=== PATIENT | male | born 1950 | race African-American/Black ===

== ENCOUNTER 2018-09-23 07:54 | Day surgery (SDC) | payer BC, OTHER ==
[2018-09-17 14:15] VITALS: BMI 29.0
[2018-09-23 08:16] VITALS: TEMP 97.6
[2018-09-23] MEDS ORDERED: PROPOFOL 20 ML ONE ×2 (08:25)
[2018-09-23 09:25] VITALS: BP 101/64; PULSE 56
--- NOTE | 2018-09-27 17:22 | PATH ---
Surgical Pathology Report Patient Name: ROSALINA MCGILL [facility]. Rec. #: [id number] /Age/Gender: 1950 (Age: 68) / M Account: [id number] Location: [facility]-ENDOSCOPY Taken: 09/23/2018 Received: 09/23/2018 Reported: 09/27/2018 Physicians: Mohamud Saldaña M.D. Specimen(s) Received RIGHT COLON Clinical History Family history of polyps Postoperative diagnosis: Polyp Final Diagnosis COLON, RIGHT, BIOPSY: TUBULAR ADENOMA. Electronically Signed Nakia Patterson M.D. Gross Description Received in formalin labeled "right colon," is a 0.3 cm in greatest dimension donato portion of soft tissue. The specimen is submitted in toto in one cassette. /09/24/2018
== END 2018-09-23 09:30 | disposition home or self-care (01) ==
LOC: FASU 07:54
PROVIDERS: ATTEND Internal Medicine Gastroenterology
PROC: 0DBK8ZX Excision of Ascending Colon, Via Natural or Artificial Opening Endoscopic, Diagnostic (ICD-10-PCS; principal; 2018-09-23 08:35)
DX: Z86.010 Personal history of colon polyps (principal); D12.2 Benign neoplasm of ascending colon; K57.30 Diverticulosis of large intestine without perforation or abscess without bleeding
CPT/HCPCS: 88305-TC